=== PATIENT | female | born 1990 | race Caucasian/White ===

== ENCOUNTER 2017-07-25 15:54 | Emergency (ER) | payer MEDICAID ==
[~2017-07-25] VITALS: Ht 160 cm; Wt 93.4 kg
[2017-07-25 16:00] VITALS: BP 112/70
--- NOTE | 2017-07-25 16:04 | NUR ---
patient to lobby with steady gait awaiting room. gcs=15.
--- NOTE | 2017-07-25 18:53 | NUR ---
PATIENT AMBULATED TO BED 11 AT THIS TIME,
--- NOTE | 2017-07-25 19:15 | NUR ---
26 yo f bib boyfriend w/ c/o vaginal bleeding that began last wednesday (x 7 days) and is now a little darker, but not enough to soak through a pad. pt reports that there is mild cramping that began today. denies n/v/d/fever/chills. pt found out that she was 1.5 weeks ago. went to another hospital on wednesday for the same problem and had labs and U/S done and they told her was ok. pt brought labs from other hospital to compare HCG blood levels. pt went to her OB wednesday and had more labs drawn but no results as of yet. pt a&o x 4. gcs 15. cms intact. rr even and unlabored. lungs bilaterally clear. abd soft, non-tender. er md chang notified. pt needs met. safety precautions in place. will continue to monitor.
[2017-07-25 19:22] LABS: APPEARANCE,URINE CLEAR (CLEAR); BILIRUBIN,URINE NEGATIVE (NEGATIVE); BLOOD, URINE 3+ (NEGATIVE); COLOR,URINE YELLOW (YELLOW); LEUKOCYTE ESTERASE ,URINE NEGATIVE (NEGATIVE); NITRITE, URINE NEGATIVE (NEGATIVE); PH,URINE 6.5 (5.0-9.0); UGLUCOSE NEGATIVE (NEGATIVE)
--- NOTE | 2017-07-25 19:42 | NUR ---
report given to CHOCO Cabezas and Rosa M RN
[2017-07-25 19:44] LABS: RBC,URINE 3-10 (FEW) /HPF (0-5); WBC,URINE 0-5 (RARE) /HPF (0-5)
--- NOTE | 2017-07-25 19:47 | NUR ---
PT TAKEN TO ULTRASOUND
[2017-07-25 19:58] LABS: BASOPHILS % (AUTO) 0.4 % (0.0-2.0); EOSINOPHILS # (AUTO) 0.2 K/uL (0-0.4); EOSINOPHILS % (AUTO) 1.9 % (0.0-4.0); HEMATOCRIT 39.2 % (36-48); LYMPHOCYTES # (AUTO) 2.9 K/uL (2.5-16.5); LYMPHOCYTES % (AUTO) 34.6 % (20.5-51.1); MEAN CORPUSCULAR HEMOGLOBIN 28 pg (27-31); MEAN CORPUSCULAR HGB CONC 33 g/dL (33-37); MONOCYTES # (AUTO) 0.5 K/uL (0.8-1.0); MONOCYTES % (AUTO) 6.1 % (1.7-9.3); NEUTROPHILS # (AUTO) 4.8 K/uL (1.8-7.7); PLATELET COUNT (AUTO) 254 K/uL (140-450); RED BLOOD CELL COUNT(AUTO) 4.61 MIL/uL (4.20-5.40); RED CELL DISTRIBUTION WIDTH 13.6 % (11.6-13.7); WHITE BLOOD COUNT (AUTO) 8.5 K/uL (4.8-10.8)
--- NOTE | 2017-07-25 20:23 | NUR ---
Dr. Sky evaluating patient at bedside.
[2017-07-25 21:56] VITALS: BP 110/85
--- NOTE | 2017-07-25 21:56 | NUR ---
Patient discharged with v/s stable. Written and verbal after care instructions given and explained. Patient verbalized understanding. Ambulatory with steady gait. All questions addressed prior to discharge. Advised to follow up with PMD.
== END 2017-07-25 21:45 | disposition home or self-care (01) ==
LOC: MED 15:54
DX: O36.4XX0 Maternal care for intrauterine death, not applicable or unspecified (principal); Z3A.01 Less than 8 weeks gestation of pregnancy
CPT/HCPCS: 36415; 76817; 81001; 81025; 84702; 85025; 86900; 86901; 99285; Q0092